=== PATIENT | female | born 1940 | race Caucasian/White ===

== ENCOUNTER 2016-11-23 09:56 | Day surgery (SDC) | payer OTHER ==
[2016-11-18 14:05] VITALS: BMI 33.2
[2016-11-23] MEDS ORDERED: PROPOFOL 20 ML ONE ×3 (10:25)
[2016-11-23 11:16] VITALS: TEMP 98
[2016-11-23 11:56] VITALS: BP 126/84; PULSE 83
[2016-11-23 12:28] LABS: BASOPHIL 0.4 % (0-2.0); EOSINOPHIL 1.6 % (0-4.5); MCH 29.4 pg (25.7-33.7); MCHC 32.9 g/dl (32.0-36.0); MEAN CELL VOLUME 89.3 fl (80-96); NEUTROPHILS 68.8 % (42.8-82.8); PLATELET COUNT 419 K/MM3 (134-434); RDW 15.3 % (11.6-15.6); WHITE BLOOD COUNT 10.4 K/mm3 (4.0-10.0)
[2016-11-23 15:30] LABS: ERYTHROCYTE SEDIMENTATION RATE 9 mm/hr (0-30)
--- NOTE | 2016-11-24 14:52 | PATH ---
Surgical Pathology Report Patient Name: NESSA KRUSE [facility]. Rec. #: [id number] /Age/Gender: 1940 (Age: 76) / F Account: [id number] Location: U-ENDOSCOPY Taken: 11/23/2016 Received: 11/23/2016 Reported: 11/24/2016 Physicians: Lai Soto M.D. Specimen(s) Received A: BX ANTRUM B: BX GE JUNCTION C: BX ESOPHAGUS D: BX SIGMOID E: BX DESCENDING COLON F: BX TRANSVERSE COLON Clinical History Reflux, diverticulitis, colitis Gastritis, hiatal hernia, esophagitis, esophageal ulcer, colitis, diverticulosis, redundant colon, pelvic adhesions Final Diagnosis A. STOMACH, ANTRUM, BIOPSY: GASTRIC ANTRAL MUCOSA WITH NO PATHOLOGIC CHANGES. IMMUNOSTAIN FOR H. PYLORI IS NEGATIVE. B. GE JUNCTION, BIOPSY: GASTRIC TYPE MUCOSA WITH CHRONIC INFLAMMATION. NO INTESTINAL METAPLASIA IDENTIFIED (NO GUILLEN'S IDENTIFIED). C. ESOPHAGUS, BIOPSY: SQUAMOUS AND GASTRIC MUCOSA WITH ACUTE AND CHRONIC INFLAMMATION AND PAPILLOMATOSIS SUGGESTIVE OF REFLUX ESOPHAGITIS. NO INTESTINAL METAPLASIA IDENTIFIED (NO GUILLEN'S IDENTIFIED). NO EOSINOPHILIC ESOPHAGITIS IDENTIFIED. D. COLON, SIGMOID, BIOPSY: ACTIVE COLITIS WITH ARCHITECTURAL DISTORTION CONSISTENT WITH IDIOPATHIC INFLAMMATORY BOWEL DISEASE. NO GRANULOMA OR DYSPLASIA IDENTIFIED. E. COLON, DESCENDING, BIOPSY: ACTIVE COLITIS WITH ARCHITECTURAL DISTORTION CONSISTENT WITH IDIOPATHIC INFLAMMATORY BOWEL DISEASE. NO GRANULOMA OR DYSPLASIA IDENTIFIED. F. COLON, TRANSVERSE, BIOPSY: ACTIVE COLITIS WITH ARCHITECTURAL DISTORTION CONSISTENT WITH IDIOPATHIC INFLAMMATORY BOWEL DISEASE. NO GRANULOMA OR DYSPLASIA IDENTIFIED. Comment: Recommend correlation with clinical findings and follow up as clinically indicated. Electronically Signed Bruno Hicks M.D. Gross Description A. Received in formalin, labeled "biopsy antrum" is a leonard, irregular portion of soft tissue measuring 0.6 cm. in greatest dimension. The specimen is submitted in toto in one cassette. B. Received in formalin, labeled "biopsy GE junction" is a leonard, irregular portion of soft tissue measuring 0.2 cm. in greatest dimension. The specimen is submitted in toto in one cassette. C. Received in formalin, labeled "biopsy esophagus" is a leonard, irregular portion of soft tissue measuring 0.3 cm. in greatest dimension. The specimen is submitted in toto in one cassette. D. Received in formalin, labeled "biopsy sigmoid" is a leonard, irregular portion of soft tissue measuring 0.3 cm. in greatest dimension. The specimen is submitted in toto in one cassette. E. Received in formalin, labeled "biopsy descending colon" is a leonard, irregular portion of soft tissue measuring 0.3 cm. in greatest dimension. The specimen is submitted in toto in one cassette. F. Received in formalin, labeled "biopsy transverse colon" are 2 leonard, irregular portions of soft tissue measuring 0.1 and 0.2 cm. in greatest dimension. The specimens are submitted in toto in one cassette. 11/23/2016 [facility]11/23/2016
== END 2016-11-23 12:06 | disposition home or self-care (01) ==
LOC: JASU-ENDO 09:56
PROVIDERS: ATTEND Internal Medicine Gastroenterology
PROC: 0DBL8ZX Excision of Transverse Colon, Via Natural or Artificial Opening Endoscopic, Diagnostic (ICD-10-PCS; 2016-11-23)
PROC: 0DBN8ZX Excision of Sigmoid Colon, Via Natural or Artificial Opening Endoscopic, Diagnostic (ICD-10-PCS; 2016-11-23)
PROC: 0DB38ZX Excision of Lower Esophagus, Via Natural or Artificial Opening Endoscopic, Diagnostic (ICD-10-PCS; 2016-11-23)
PROC: 0DB68ZX Excision of Stomach, Via Natural or Artificial Opening Endoscopic, Diagnostic (ICD-10-PCS; 2016-11-23)
PROC: 0DBM8ZX Excision of Descending Colon, Via Natural or Artificial Opening Endoscopic, Diagnostic (ICD-10-PCS; principal; 2016-11-23 11:00)
DX: Z12.11 Encounter for screening for malignant neoplasm of colon (principal); K57.30 Diverticulosis of large intestine without perforation or abscess without bleeding; K63.89 Other specified diseases of intestine; K63.3 Ulcer of intestine; K64.8 Other hemorrhoids; K29.70 Gastritis, unspecified, without bleeding; K44.9 Diaphragmatic hernia without obstruction or gangrene; K22.10 Ulcer of esophagus without bleeding
CPT/HCPCS: 36415; 85025; 85651; 86140; 88305-TC; 88342-TC

== ENCOUNTER 2017-03-17 11:13 | Day surgery (SDC) | payer OTHER ==
[2017-03-16 15:17] VITALS: BMI 33.2
[2017-03-17] MEDS ORDERED: PROPOFOL 20 ML ONE ×2 (12:14)
[2017-03-17 14:01] VITALS: TEMP 97.7
[2017-03-17 14:16] VITALS: BP 149/84; PULSE 76
--- NOTE | 2017-03-18 17:03 | PATH ---
Surgical Pathology Report Patient Name: NESSA KRUSE [facility]. Rec. #: [id number] /Age/Gender: 1940 (Age: 76) / F Account: [id number] Location: U-ENDOSCOPY Taken: 03/17/2017 Received: 03/17/2017 Reported: 03/18/2017 Physicians: Lai Soto M.D. Specimen(s) Received A: BX STOMACH B: BIOPSY DISTAL ESOPHAGUS Clinical History Preoperative diagnosis: Reflux, ulcerative colitis Postoperative diagnosis: Bile reflux, hiatal hernia, severe diverticulosis, no colitis Final Diagnosis A. STOMACH, BIOPSY: GASTRIC OXYNTIC MUCOSA WITH MILD CHRONIC GASTRITIS. IMMUNOHISTOCHEMICAL STAIN FOR H. PYLORI IS NEGATIVE. B. DISTAL ESOPHAGUS, BIOPSY: SQUAMOUS MUCOSA WITH MILD VASCULAR CONGESTION. Electronically Signed Althea Alcala M.D. Gross Description A. Received in formalin, labeled "biopsy stomach" are 2 leonard, irregular portions of soft tissue averaging 0.3 cm. in greatest dimension. The specimens are submitted in toto in one cassette. B. Received in formalin, labeled "biopsy distal esophagus" is a leonard, irregular portion of soft tissue measuring 0.4 cm. in greatest dimension. The specimen is submitted in toto in one cassette. 03/17/201703/17/2017
== END 2017-03-17 14:24 | disposition home or self-care (01) ==
LOC: JASU-ENDO 11:13
PROVIDERS: ATTEND Internal Medicine Gastroenterology
PROC: 0DJD8ZZ Inspection of Lower Intestinal Tract, Via Natural or Artificial Opening Endoscopic (ICD-10-PCS; principal; 2017-03-17 12:00)
DX: K51.90 Ulcerative colitis, unspecified, without complications (principal); K57.30 Diverticulosis of large intestine without perforation or abscess without bleeding; K64.8 Other hemorrhoids
CPT/HCPCS: 88305-TC; 88342-TC

== ENCOUNTER 2019-01-11 12:54 | Day surgery (SDC) | payer OTHER ==
[2019-01-11] MEDS ORDERED: diphenhydrAMINE HCL 25 MG CAPSULE (FP) PO ONE ×2 (13:30→13:31)
[2019-01-11] MEDS ORDERED: ACETAMINOPHEN 325 MG TABLET (FP) PO ONE (13:30)
[2019-01-11] MEDS ORDERED: ACETAMINOPHEN 325 MG TABLET (FP) ONE (13:31)
[2019-01-11 13:32] LABS: BASO % 0.7 % (0-2.0); EOS % 0.7 % (0-4.5); HEMATOCRIT 40.7 % (32.4-45.2); HEMOGLOBIN 13.6 GM/dL (10.7-15.3); LYMPH % 22.9 % (8-40); MCH 30.5 pg (25.7-33.7); MCHC 33.5 g/dl (32.0-36.0); MEAN PLT VOLUME 7.5 fl (7.5-11.1); MONO % 11.6 % (3.8-10.2); NEUT % 64.1 % (42.8-82.8); PLATELET COUNT 436 K/MM3 (134-434); RBC 4.47 M/mm3 (3.60-5.2); RDW 16.5 % (11.6-15.6); WHITE BLOOD COUNT 13.5 K/mm3 (4.0-10.0)
[2019-01-11 13:42] LABS: ANION GAP 6 MMOL/L (8-16); BLOOD UREA NITROGEN 18.6 mg/dL (7-18); CALCIUM 9.9 mg/dL (8.5-10.1); CHLORIDE 103 mmol/L (98-107); CO2 32 mmol/L (21-32); CREATININE 0.9 mg/dL (0.55-1.3); GLUCOSE,RANDOM 100 mg/dL (74-106); POTASSIUM 4.1 mmol/L (3.5-5.1); SODIUM 141 mmol/L (136-145)
[2019-01-11] MEDS ORDERED: VEDOLIZUMAB 300 MG in SODIUM CHLORIDE 250 ML IVPB ONE (14:00)
[2019-01-11] MEDS ORDERED: EPINEPHrine 1:10,000 (P-F SYR) 1 MG/10 ML DISP.SYRIN IVPUSH PRN (14:00)
[2019-01-11] MEDS ORDERED: methylPREDNISolone NA SUCC 40 MG/1 ML VIAL IVPUSH ONE (14:00)
[2019-01-11] MEDS ORDERED: EPINEPHrine 1:10,000 (P-F SYR) 1 MG/10 ML DISP.SYRIN IVPUSH ONE (14:00)
[2019-01-11] MEDS ORDERED: methylPREDNISolone NA SUCC 40 MG/1 ML VIAL ONE (14:01)
[2019-01-11] MEDS ORDERED: EPINEPHrine 1:10,000 (P-F SYR) 1 MG/10 ML DISP.SYRIN ONE (14:01)
[2019-01-11 15:12] VITALS: BP 147/89; PULSE 85; TEMP 98.2
[2019-01-11 16:24] LABS: PLATELET ESTIMATE ADEQUATE
== END 2019-01-11 15:49 | disposition home or self-care (01) ==
LOC: JCHEMO 12:54
PROVIDERS: ATTEND Internal Medicine Gastroenterology
DX: K51.90 Ulcerative colitis, unspecified, without complications (principal)
CPT/HCPCS: 36415; 80048; 85025; 86140; 96365; 96413; J3380

== ENCOUNTER 2019-01-24 13:04 | Day surgery (SDC) | payer OTHER ==
[~2019-01-24 13:04] MED LIST: ACETAMINOPHEN 325 MG TABLET (FP) PO ONE; EPINEPHrine 1:10,000 (P-F SYR) 1 MG/10 ML DISP.SYRIN IVPUSH PRN; VEDOLIZUMAB 300 MG in SODIUM CHLORIDE 250 ML IVPB ONE; diphenhydrAMINE HCL 25 MG CAPSULE (FP) PO ONE; methylPREDNISolone NA SUCC 40 MG/1 ML VIAL IVPUSH PRN
[2019-01-24 13:28] LABS: BASO % 0.8 % (0-2.0); EOS % 2.3 % (0-4.5); HEMATOCRIT 40.7 % (32.4-45.2); HEMOGLOBIN 13.8 GM/dL (10.7-15.3); LYMPH % 32.9 % (8-40); MCH 31.1 pg (25.7-33.7); MCHC 33.8 g/dl (32.0-36.0); MONO % 8.1 % (3.8-10.2); NEUT % 55.9 % (42.8-82.8); PLATELET COUNT 413 K/MM3 (134-434); RBC 4.42 M/mm3 (3.60-5.2)
[2019-01-24] MEDS ORDERED: diphenhydrAMINE HCL 25 MG CAPSULE (FP) PO ONE (13:48)
[2019-01-24] MEDS ORDERED: ACETAMINOPHEN 325 MG TABLET (FP) ONE (13:49)
[2019-01-24 13:58] LABS: ANION GAP 6 MMOL/L (8-16); BLOOD UREA NITROGEN 19.5 mg/dL (7-18); CALCIUM 8.7 mg/dL (8.5-10.1); CHLORIDE 102 mmol/L (98-107); CO2 33 mmol/L (21-32); CREATININE 0.8 mg/dL (0.55-1.3); GLUCOSE,RANDOM 93 mg/dL (74-106); POTASSIUM 3.2 mmol/L (3.5-5.1); SODIUM 140 mmol/L (136-145)
[2019-01-24 15:04] VITALS: TEMP 97.9
[2019-01-24 15:29] VITALS: BP 150/92; PULSE 88
== END 2019-01-24 15:30 | disposition home or self-care (01) ==
LOC: JCHEMO 13:04
PROVIDERS: ATTEND Internal Medicine Gastroenterology
DX: K51.90 Ulcerative colitis, unspecified, without complications (principal)
CPT/HCPCS: 36415; 80048; 85025; 86140; 96365; 96413; J3380

== ENCOUNTER → 2019-02-24 | Day surgery (SDC) | payer OTHER ==
[~2019-02-24] MED LIST changes: +ACETAMINOPHEN 500 MG TABLET (FP) ONE
[2019-02-24 12:54] LABS: BASO % 0.7 % (0-2.0); EOS % 2.8 % (0-4.5); HEMATOCRIT 37.5 % (32.4-45.2); HEMOGLOBIN 12.7 GM/dL (10.7-15.3); LYMPH % 28.3 % (8-40); MCH 31.4 pg (25.7-33.7); MCHC 33.9 g/dl (32.0-36.0); MEAN CELL VOLUME 92.7 fl (80-96); MEAN PLT VOLUME 7.4 fl (7.5-11.1); MONO % 10.9 % (3.8-10.2); NEUT % 57.3 % (42.8-82.8); PLATELET COUNT 405 K/MM3 (134-434); RBC 4.05 M/mm3 (3.60-5.2); RDW 15.1 % (11.6-15.6); WHITE BLOOD COUNT 9.2 K/mm3 (4.0-10.0)
[2019-02-24 13:26] VITALS: TEMP 98.5
[2019-02-24 13:29] LABS: ANION GAP 5 MMOL/L (8-16); BLOOD UREA NITROGEN 10.8 mg/dL (7-18); CALCIUM 8.6 mg/dL (8.5-10.1); CHLORIDE 107 mmol/L (98-107); CO2 30 mmol/L (21-32); CREATININE 0.7 mg/dL (0.55-1.3); GLUCOSE,RANDOM 94 mg/dL (74-106); POTASSIUM 3.9 mmol/L (3.5-5.1); SODIUM 142 mmol/L (136-145)
[2019-02-24 14:16] VITALS: BP 143/86; PULSE 84
== END | disposition home or self-care (01) ==
LOC: JASU-ENDO 12:13
PROVIDERS: ATTEND Internal Medicine Gastroenterology
DX: K51.90 Ulcerative colitis, unspecified, without complications (principal)
CPT/HCPCS: 36415; 80048; 85025; 86140; 96365; 96413; J3380

== ENCOUNTER 2019-04-24 12:08 | Day surgery (SDC) | payer OTHER ==
[~2019-04-24 12:08] MED LIST changes: -ACETAMINOPHEN 500 MG TABLET (FP) ONE; -diphenhydrAMINE HCL 25 MG CAPSULE (FP) PO ONE; +diphenhydrAMINE HCL 50 MG CAPSULE PO ONE
[2019-04-24 12:48] LABS: BASO % 0.8 % (0-2.0); EOS % 6.2 % (0-4.5); HEMATOCRIT 39.9 % (32.4-45.2); HEMOGLOBIN 13.3 GM/dL (10.7-15.3); LYMPH % 23.2 % (8-40); MCH 30.3 pg (25.7-33.7); MCHC 33.4 g/dl (32.0-36.0); MEAN CELL VOLUME 90.6 fl (80-96); MEAN PLT VOLUME 7.7 fl (7.5-11.1); MONO % 13.2 % (3.8-10.2); NEUT % 56.6 % (42.8-82.8); PLATELET COUNT 402 K/MM3 (134-434); RDW 14.1 % (11.6-15.6); WHITE BLOOD COUNT 8.2 K/mm3 (4.0-10.0)
[2019-04-24 13:05] LABS: BLOOD UREA NITROGEN 10.6 mg/dL (7-18); CALCIUM 8.9 mg/dL (8.5-10.1); CREATININE 0.8 mg/dL (0.55-1.3); POTASSIUM 3.4 mmol/L (3.5-5.1)
== END 2019-04-24 13:30 | disposition home or self-care (01) ==
LOC: JCHEMO 12:08 → JASU-ENDO 12:08 → JCHEMO 13:30
PROVIDERS: ATTEND Internal Medicine Gastroenterology
DX: Z53.8 Procedure and treatment not carried out for other reasons (principal)
CPT/HCPCS: 36415; 80048; 85025; 86140

== ENCOUNTER 2019-04-25 10:59 | Day surgery (SDC) | payer OTHER ==
[2019-04-25] MEDS ORDERED: EPINEPHrine 1:10,000 (P-F SYR) 1 MG/10 ML DISP.SYRIN IVPUSH PRN (11:08)
[2019-04-25] MEDS ORDERED: methylPREDNISolone NA SUCC 40 MG/1 ML VIAL IVPUSH PRN (11:09)
[2019-04-25] MEDS ORDERED: VEDOLIZUMAB 300 MG in SODIUM CHLORIDE 250 ML IVPB ONE (11:15)
[2019-04-25] MEDS ORDERED: diphenhydrAMINE HCL 50 MG CAPSULE PO ONE (11:15)
[2019-04-25] MEDS ORDERED: ACETAMINOPHEN 325 MG TABLET (FP) PO ONE (11:15)
[2019-04-25] MEDS ORDERED: diphenhydrAMINE HCL 25 MG CAPSULE (FP) PO ONE (11:21)
[2019-04-25] MEDS ORDERED: ACETAMINOPHEN 325 MG TABLET (FP) ONE (11:21)
[2019-04-25 13:28] VITALS: BP 117/75; PULSE 87
[2019-04-25 13:31] VITALS: TEMP 98.1
== END 2019-04-25 13:30 | disposition home or self-care (01) ==
LOC: JASU-ENDO 10:59
PROVIDERS: ATTEND Internal Medicine Gastroenterology
PROC: 3E033GC Introduction of Other Therapeutic Substance into Peripheral Vein, Percutaneous Approach (ICD-10-PCS; principal; 2019-04-25)
DX: K51.90 Ulcerative colitis, unspecified, without complications (principal)
CPT/HCPCS: 96365; 96413; J3380

== ENCOUNTER 2019-06-21 12:59 | Day surgery (SDC) | payer OTHER ==
[2019-06-21 13:53] LABS: BASO % 0.6 % (0-2.0); EOS % 3.1 % (0-4.5); HEMATOCRIT 37.1 % (32.4-45.2); HEMOGLOBIN 12.5 GM/dL (10.7-15.3); LYMPH % 23.3 % (8-40); MCH 30.4 pg (25.7-33.7); MCHC 33.8 g/dl (32.0-36.0); MEAN CELL VOLUME 89.8 fl (80-96); MEAN PLT VOLUME 7.4 fl (7.5-11.1); MONO % 9.2 % (3.8-10.2); NEUT % 63.8 % (42.8-82.8); PLATELET COUNT 425 K/MM3 (134-434); RBC 4.13 M/mm3 (3.60-5.2); RDW 15.9 % (11.6-15.6); WHITE BLOOD COUNT 7.6 K/mm3 (4.0-10.0)
[2019-06-21] MEDS ORDERED: ACETAMINOPHEN 325 MG TABLET (FP) PO ONE (14:00)
[2019-06-21] MEDS ORDERED: diphenhydrAMINE HCL 25 MG CAPSULE (FP) PO ONE (14:00)
[2019-06-21 14:23] LABS: ANION GAP 7 MMOL/L (8-16); BLOOD UREA NITROGEN 10.9 mg/dL (7-18); CALCIUM 8.8 mg/dL (8.5-10.1); CHLORIDE 102 mmol/L (98-107); CO2 29 mmol/L (21-32); CREATININE 0.7 mg/dL (0.55-1.3); GLUCOSE,RANDOM 95 mg/dL (74-106); POTASSIUM 3.9 mmol/L (3.5-5.1); SODIUM 138 mmol/L (136-145)
[2019-06-21] MEDS ORDERED: VEDOLIZUMAB 300 MG in SODIUM CHLORIDE 250 ML IVPB ONE (14:30)
[2019-06-21 15:29] VITALS: TEMP 97.1
[2019-06-21 15:35] VITALS: BP 130/74; PULSE 80
== END 2019-06-21 15:35 | disposition home or self-care (01) ==
LOC: J7W 12:59 → JINFUSION 12:59
PROVIDERS: ATTEND Internal Medicine Gastroenterology
PROC: 3E033GC Introduction of Other Therapeutic Substance into Peripheral Vein, Percutaneous Approach (ICD-10-PCS; principal; 2019-06-21)
DX: K51.90 Ulcerative colitis, unspecified, without complications (principal)
CPT/HCPCS: 36415; 80048; 85025; 86140; 96365; J3380